=== PATIENT | female | born 1985 | race Caucasian/White ===

== ENCOUNTER 2016-10-11 16:49 | Emergency (ER) | payer MEDICAID ==
[2016-10-11] MEDS ORDERED: HYDROmorphone 1 MG/ML SYRINGE IM STA (18:00)
[2016-10-11] MEDS ORDERED: METHOCARBAMOL 500 MG TABLET PO STA (18:00)
[2016-10-11] MEDS ORDERED: KETOROLAC 60 MG/2 ML VIAL IM STA (18:01)
[2016-10-11] MEDS ORDERED: HYDROmorphone 1 MG/ML SYRINGE ONE (18:13)
[2016-10-11] MEDS ORDERED: KETOROLAC 60 MG/2 ML VIAL ONE (18:13)
[2016-10-11] MEDS ORDERED: METHOCARBAMOL 500 MG TABLET PO ONE (18:13)
== END 2016-10-11 18:45 | disposition home or self-care (01) ==
DX: M54.41 Lumbago with sciatica, right side (principal); W00.0XXA Fall on same level due to ice and snow, initial encounter; F17.200 Nicotine dependence, unspecified, uncomplicated
CPT/HCPCS: 96372; 99283; 99284; A9270; J1170

== ENCOUNTER 2016-11-04 15:16 | Emergency (ER) | payer MEDICAID ==
[2016-11-04] MEDS ORDERED: oxyCOD/ACETAMIN 5 MG/325 MG TABLET PO STA (15:42)
[2016-11-04] MEDS ORDERED: oxyCOD/ACETAMIN 5 MG/325 MG TABLET PO ONE ×2 (15:43→15:45)
== END 2016-11-04 16:22 | disposition home or self-care (01) ==
DX: M54.41 Lumbago with sciatica, right side (principal); F17.200 Nicotine dependence, unspecified, uncomplicated
CPT/HCPCS: 99283; A9270

== ENCOUNTER 2017-03-14 17:12 | Emergency (ER) | payer MEDICAID ==
[2017-03-14] MEDS ORDERED: ONDANSETRON 4 MG/2 ML VIAL IVP STA (18:50)
[2017-03-14] MEDS ORDERED: HYDROmorphone 1 MG/ML SYRINGE IVP STA ×3 (18:50→21:33)
[2017-03-14] MEDS ORDERED: SODIUM CHLORIDE 0.9% 1,000 ML IV ONE (18:50)
[2017-03-14] MEDS ORDERED: HYDROmorphone 1 MG/ML SYRINGE ONE ×3 (18:55→21:38)
[2017-03-14] MEDS ORDERED: ONDANSETRON 4 MG/2 ML VIAL ONE (18:55)
[2017-03-14 18:59] LABS: BASOPHILS # (AUTO) 0.1 10^3/uL (0.0-0.1); EOSINOPHILS # (AUTO) 0.2 10^3/uL (0.0-0.7); EOSINOPHILS % (AUTO) 2.7 %; HCT - HEMATOCRIT 38.2 % (37.0-47.0); HGB - HEMOGLOBIN 13.1 g/dL (12.0-16.0); LYMPHOCYTES # (AUTO) 3.3 10^3/uL (1.5-3.5); LYMPHOCYTES % (AUTO) 36.4 %; MEAN CORPUSCULAR HGB CONC 34.2 g/dL (32.0-36.0); MEAN CORPUSCULAR VOLUME 93.6 fL (81.0-99.0); MONOCYTES # (AUTO) 0.5 10^3/uL (0.0-1.0); MONOCYTES % (AUTO) 5.2 %; NEUTROPHILS # (AUTO) 4.9 10^3/uL (1.5-6.6); NEUTROPHILS % (AUTO) 54.7 %; RED BLOOD COUNT 4.08 10^6/uL (4.20-5.40); RED CELL DISTRIBUTION WIDTH 13.1 % (12.0-15.0)
[2017-03-14 19:08] LABS: ALBUMIN/GLOBULIN RATIO 1.3 (1.0-2.2); BILIRUBIN,TOTAL 0.3 mg/dL (0.2-1.0); CALCIUM 9.1 mg/dL (8.5-10.3); CREATININE 0.6 mg/dL (0.4-1.0); POTASSIUM 3.7 mmol/L (3.5-5.0); TOTAL PROTEIN 7.3 g/dL (6.7-8.2)
--- NOTE | 2017-03-14 20:43 | ED Physician Documentation ---
PD HPI FEMALE - Stated complaint Stated Complaint: POSS MISCARRAIGE - Chief complaint Chief Complaint: General - History obtained from History obtained from: Patient - History of Present Illness Timing - onset: Yesterday Timing - duration: Days (09/18) Timing - details: Abrupt onset, Still present (had onset of vaginal bleeding and uterine cramping started yesterday morning, intermittent with passage of some clots vaginally and one point what looked like a small bit of tissue. She took pictures but did not save it. Having increased cramps and passed larger clots ("size of a baseball") today at work so here to ED. No fever, no vomiting but did have some nausea.), Waxing and waning Associated symptoms: Vaginal bleeding. 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 No: Prior ectopic, Ovarian cysts Similar symptoms before: Diagnosis (miscarriage twice remotely in the past) Recently seen: Not recently seen (had nto have BIAS CUTTER HELPER appt as yet.) Review of Systems Constitutional: denies: Fever, Chills GI: reports: Nausea. denies: Vomiting, Diarrhea : reports: LMP (January 15), Vaginal bleeding. denies: Dysuria, Frequency, Discharge Neurologic: reports: Generalized weakness. 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: Miscarriage(s) : Kidney stones HEENT: None Psych: None Musculoskeletal: None Derm: None - Past Surgical History Past Surgical History: No - Present Medications Home Medications: Ambulatory Orders Medication Instructions Recorded Confirmed Sertraline HCl [Zoloft] 200 mg PO DAILY 08/03/16 03/14/17 Ondansetron Odt [Zofran] 4 mg TL Q6H PRN #15 tablet 03/14/17 Oxycodone HCl/Acetaminophen 1 each PO Q6H PRN #20 tablet 03/14/17 [Percocet 5-325 mg Tablet] - Allergies Allergies/Adverse Reactions: Allergies Allergy/AdvReac Type Severity Reaction Status Date / Time No Known Drug Allergies Allergy Verified 11/04/16 15:24 - Social History Does the pt smoke?: No Smoking Status: Never smoker Does the pt drink ETOH?: No Does the pt have substance abuse?: No - Immunizations Immunizations are current?: Yes - POLST Patient has POLST: No PD ED PE NORMAL - Vitals Vital signs reviewed: (tachycardic but BP is okay.) - General General: Alert and oriented X 3, Well developed/nourished, Other (appears in pain with pelvic cramping) - Neck Neck: Supple, no meningeal sign, No adenopathy - Cardiac Cardiac: RRR, No murmur - Respiratory Respiratory: Clear bilaterally - Abdomen Abdomen: Normal bowel sounds, Soft, Non distended, No organomegaly, Other ( tender suprapubic/lower abd midline. ) - Female Female : Deferred, Other (she has not had much blood out here in ED even with U/S (small clots only). ) - Rectal Rectal: Deferred - Back Back: No CVA TTP - Derm Derm: Normal color, Warm and dry - Extremities Extremities: No tenderness to palpate, Normal ROM s pain - Neuro Neuro: Alert and oriented X 3, No motor deficit, Normal speech - Psych Psych: No: Normal mood (somewhat sad) Results - Vitals Vitals: Vital Signs - 24 hr 03/14/17 03/14/17 03/14/17 17:22 19:03 21:57 Temperature 36.1 C L Heart Rate 124 H 108 H 124 H Respiratory 16 20 19 Rate Blood Pressure 130/86 H 127/68 118/84 H O2 Saturation 100 100 98 Oxygen O2 Source Room air - Labs Labs: Laboratory Tests 03/14/17 03/14/17 03/14/17 17:12 18:35 18:35 WBC 9.0 RBC 4.08 L Hgb 13.1 Hct 38.2 MCV 93.6 MCH 32.0 H MCHC 34.2 RDW 13.1 Plt Count 306 MPV 8.0 Neut # 4.9 Lymph # 3.3 Dunn # 0.5 Eos # 0.2 Baso # 0.1 Absolute Nucleated RBC 0.00 Nucleated RBCs 0.0 Sodium Potassium Chloride Carbon Dioxide Anion Gap BUN Creatinine Estimated GFR (MDRD) Glucose Calcium Total Bilirubin AST ALT Alkaline Phosphatase Total Protein Albumin Globulin Albumin/Globulin Ratio Lipase HCG, Quant < 0.60 Blood Type O POSITIVE Antibody Screen NEGATIVE 03/14/17 18:35 WBC RBC Hgb Hct MCV MCH MCHC RDW Plt Count MPV Neut # Lymph # Dunn # Eos # Baso # Absolute Nucleated RBC Nucleated RBCs Sodium 138 Potassium 3.7 Chloride 104 Carbon Dioxide 27 Anion Gap 7.0 BUN 11 Creatinine 0.6 Estimated GFR (MDRD) 115 Glucose 103 H Calcium 9.1 Total Bilirubin 0.3 AST 21 ALT 23 Alkaline Phosphatase 59 Total Protein 7.3 Albumin 4.1 Globulin 3.2 Albumin/Globulin Ratio 1.3 Lipase 12 L HCG, Quant Blood Type Antibody Screen - Rads (name of study) OB U/S Radiology: Prelim report reviewed (no definitie IUP seen. Adnexae are normal. No free fluid. ) PD MEDICAL DECISION MAKING - ED course Complexity details: reviewed results (No definite IUP seen on U/S. ), re- evaluated patient (pain lessened and better with meds but did need repeat dosings at intervals. Remains slightly tachycardic, but bP good and not having significant bleeding. Presume pain response. ), considered differential (She is 8 weeks by dates with prior positive preg test, and now negative quant, which would be c/w IUFD and now incomplete miscarriage. Having clots and cramping. The degree of bleeding is not significant to need urgent D&C, but the clots/ cramps are significant needing pain meds IV. She would prefer trying to go home and see if can complete the miscarriage, and I talked with Dr. Garcia, component assembler supervisor, so he is aware of the case for follow up. A quant of zero would not be c/w nor concerning of ectopic and no adnexal abnormal on U/S. ), d/w patient, d/w independent beauty consultant (Dr. Garcia, component assembler supervisor OB) Departure - Departure Disposition: Home, Self Care Clinical Impression: Incomplete miscarriage with blood clot Condition: Stable Record reviewed to determine appropriate education?: Yes Instructions: ED Miscarriage Incom Follow-Up: Crow Garcia MD [Provider Admit Priv/Credential] - [facility] [Provider Group] Prescriptions: Oxycodone HCl/Acetaminophen [Percocet 5-325 mg Tablet] 1 each PO Q6H PRN #20 tablet PRN Reason: Pain Ondansetron Odt [Zofran] 4 mg TL Q6H PRN #15 tablet PRN Reason: Nausea / Vomiting Comments: Drink lots of fluids. Ibuprofen 2-3 times daily, and add Tylenol for mild pain/ percocet for worse pain. Ondansatron if needed for nausea. Call [facility] tomorrow morning to set up appt with any of the providers for the next 1- 2 days. Return to ER if bleeding becomes brisker, pain not controlled with meds , any fevers, other concerns. This is apparently an incomplete miscarriage and can see if the bleeding stops itself and then done, or if it needs assistance completing the miscarriage with D&C or such.
--- NOTE | 2017-03-14 21:17 | Ultrasound Preliminary Report ---
Exam: US OB First Trimester IMPRESSION: 1. No definite intrauterine gestation seen. Differential diagnosis includes a normal early or miscarriage. Ectopic is not excluded although none is seen on this exam. Correlation wit h serial quantitative hCG and follow-up ultrasound in 10-14 days recommended. [facility] SITE ID: [id number]
--- NOTE | 2017-03-14 21:20 | Ultrasound Report ---
REVISED: THIS REPORT WAS ORIGINALLY SIGNED ON 03/14/2017 @ 2120. ORDERS LINKED ON 04/09/2017. EXAM: PELVIC ULTRASOUND EXAM DATE: 03/14/2017 08:12 PM. CLINICAL HISTORY: , vaginal bleeding and cramping. COMPARISON: None. TECHNIQUE: Realtime transabdominal pelvic scan performed to identify the uterus and adnexa and as an overview of other pelvic structures, followed by transvaginal scan to provide greater detail of the uterus and adnexa, with static image documentation. FINDINGS: Uterus: 8.7 x 4.6 x 6.4 cm. Anteverted position. Masses: Posterior intramural fibroid measuring 10 mm. Endometrium: 3 mm. Thin endometrium with small amount of fluid near the fundus without well-defined yolk sac or embryo. Cervix: Unremarkable. Right Ovary: 3.0 x 4.8 x 2.4 cm, volume 17 cc. Unremarkable with a simple 1.9 cm cyst. Left Ovary: 2.3 x 1.6 x 1.5 cm, volume 3 cc. Unremarkable Free Fluid: None. Other: None. IMPRESSION: 1. No definite intrauterine gestation seen. Differential diagnosis includes a normal early or miscarriage. Ectopic is not excluded although none is seen on this exam. Correlation with serial quantitative hCG and follow-up ultrasound in 10-14 days recommended. [facility] Referring Provider Line: [phone] SITE ID: [id number]
[2017-03-14] MEDS ORDERED: oxyCODONE/ACET 5/325 Prepack 4 PO STA (21:54)
[2017-03-14] MEDS ORDERED: ONDANSETRON ODT 4 MG Prepack 2 TL PRN (21:54)
[2017-03-14] MEDS ORDERED: oxyCODONE/ACET 5/325 Prepack 4 PO ONE (21:55)
[2017-03-14] MEDS ORDERED: ONDANSETRON ODT 4 MG Prepack 2 TL ONE (21:56)
[2017-03-14 21:58] VITALS: BP 118/84
== END 2017-03-14 22:22 | disposition home or self-care (01) ==
LOC: ED 17:12
DX: O03.4 Incomplete spontaneous abortion without complication (principal); N96 Recurrent pregnancy loss
CPT/HCPCS: 36415; 76801; 76817; 80053; 83690; 84702; 85025; 86850; 86900; 86901; 96374; 96375; 96376; 99283; 99284; J1170

== ENCOUNTER 2017-03-20 11:15 | Emergency (ER) | payer MEDICAID ==
[2017-03-20] MEDS ORDERED: HYDROcod/ACETAM 5/325 MG TABLET PO STA (12:14)
[2017-03-20] MEDS ORDERED: IBUPROFEN 600 MG TABLET PO STA (12:14)
[2017-03-20] MEDS ORDERED: IBUPROFEN 600 MG TABLET PO ONE (12:17)
[2017-03-20] MEDS ORDERED: HYDROcod/ACETAM 5/325 MG TABLET ONE (12:17)
[2017-03-20] MEDS ORDERED: oxyCOD/ACETAMIN 5 MG/325 MG TABLET PO STA (14:10)
[2017-03-20] MEDS ORDERED: oxyCOD/ACETAMIN 5 MG/325 MG TABLET PO ONE (14:11)
[2017-03-20] MEDS ORDERED: metroNIDAZOLE 250 MG TABLET PO STA (15:26)
[2017-03-20] MEDS ORDERED: metroNIDAZOLE 250 MG TABLET PO ONE (15:30)
== END 2017-03-20 15:40 | disposition home or self-care (01) ==
DX: R10.2 Pelvic and perineal pain (principal); N76.0 Acute vaginitis; B96.89 Other specified bacterial agents as the cause of diseases classified elsewhere; N83.201 Unspecified ovarian cyst, right side; R00.0 Tachycardia, unspecified; Z87.442 Personal history of urinary calculi
CPT/HCPCS: 36415; 76830; 76856; 81001; 84703; 85025; 87077; 87086; 87181; 87210; 87491; 87591; 93976; 99283; 99284; A9270

== ENCOUNTER 2017-04-23 18:07 | Emergency (ER) | payer MEDICAID ==
[2017-04-23 19:58] LABS: BASOPHILS # (AUTO) 0.1 10^3/uL (0.0-0.1); BASOPHILS % (AUTO) 0.8 %; EOSINOPHILS # (AUTO) 0.2 10^3/uL (0.0-0.7); EOSINOPHILS % (AUTO) 1.9 %; HCT - HEMATOCRIT 38.1 % (37.0-47.0); HGB - HEMOGLOBIN 12.9 g/dL (12.0-16.0); LYMPHOCYTES # (AUTO) 3.2 10^3/uL (1.5-3.5); LYMPHOCYTES % (AUTO) 33.2 %; MEAN CORPUSCULAR HGB CONC 33.9 g/dL (32.0-36.0); MEAN CORPUSCULAR VOLUME 94.1 fL (81.0-99.0); MEAN PLATELET VOLUME 7.8 fL (7.9-10.8); MONOCYTES # (AUTO) 0.5 10^3/uL (0.0-1.0); NEUTROPHILS # (AUTO) 5.7 10^3/uL (1.5-6.6); NEUTROPHILS % (AUTO) 59.1 %; RED BLOOD COUNT 4.05 10^6/uL (4.20-5.40); RED CELL DISTRIBUTION WIDTH 12.4 % (12.0-15.0); UNCORRECTED WHITE BLOOD COUNT 9.6 x10^3/uL; WHITE BLOOD COUNT 9.6 x10^3/uL (4.8-10.8)
[2017-04-23 20:18] LABS: CREATININE 0.5 mg/dL (0.4-1.0); POTASSIUM 3.9 mmol/L (3.5-5.0)
[2017-04-23] MEDS ORDERED: oxyCOD/ACETAMIN 5 MG/325 MG TABLET PO STA (21:20)
--- NOTE | 2017-04-23 21:23 | ED Physician Documentation ---
History of Present Illness - Stated complaint Stated Complaint: FEMALE /6WK OB - Chief complaint Chief Complaint: General - History obtained from History obtained from: Patient - History of Present Illness Timing: Other (G8 now with 3 miscarriages in her past, has had light bleeding and heavy cramping for the last day. 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: Miscarriage(s) : Kidney stones HEENT: None Psych: None Musculoskeletal: None Derm: None - Past Surgical History Past Surgical History: No - Present Medications Home Medications: Ambulatory Orders Medication Instructions Recorded Confirmed Sertraline HCl [Zoloft] 200 mg PO DAILY 08/03/16 03/20/17 Oxycodone HCl/Acetaminophen 1 - 2 tab PO Q4H PRN #7 tablet 04/23/17 [Percocet 5-325 mg Tablet] - Allergies Allergies/Adverse Reactions: Allergies Allergy/AdvReac Type Severity Reaction Status Date / Time No Known Drug Allergies Allergy Verified 04/23/17 18:56 - Social History Does the pt smoke?: No Smoking Status: Never smoker Does the pt drink ETOH?: No Does the pt have substance abuse?: No - Immunizations Immunizations are current?: Yes - POLST Patient has POLST: No PD ED PE NORMAL - Vitals Vital signs reviewed: Yes - General General: Alert and oriented X 3, No acute distress - HEENT HEENT: PERRL, EOMI - Neck Neck: Supple, no meningeal sign, No bony TTP - Abdomen Abdomen: Normal bowel sounds, Soft, Non tender - Back Back: No CVA TTP, No spinal TTP - Extremities Extremities: No edema, No calf tenderness / cord - Neuro Neuro: Alert and oriented X 3, Normal speech - Psych Psych: Normal mood, Normal affect Results - Vitals Vitals: Vital Signs - 24 hr 04/23/17 04/23/17 18:42 23:03 Temperature 36.4 C L Heart Rate 100 95 Respiratory 18 16 Rate Blood Pressure 123/67 131/61 H O2 Saturation 100 98 Oxygen O2 Source Room air - Labs Labs: Laboratory Tests 04/23/17 04/23/17 04/23/17 19:52 19:52 19:52 WBC 9.6 RBC 4.05 L Hgb 12.9 Hct 38.1 MCV 94.1 MCH 32.0 H MCHC 33.9 RDW 12.4 Plt Count 275 MPV 7.8 L Neut # 5.7 Lymph # 3.2 [place] # 0.5 Eos # 0.2 Baso # 0.1 Absolute Nucleated RBC 0.00 Nucleated RBCs 0.0 Sodium 135 Potassium 3.9 Chloride 104 Carbon Dioxide 23 Anion Gap 8.0 BUN 11 Creatinine 0.5 Estimated GFR (MDRD) 142 Glucose 137 H Calcium 9.0 HCG, Quant 21701.00 - Rads (name of study) pELVIC SONO Radiology: EMP read contemporaneously (Single IUP, 6 weeks and 1 day with small andrzej-gestational fluid collection and a fibroid uterus) PD MEDICAL DECISION MAKING - ED course ED course: The patient and family were counseled as to the diagnosis and need for follow- up. I counseled the patient with regard to signs and symptoms that would necessitate an urgent reevaluation in the emergency department. They understand they are welcome to return at any time if worse or if not improving as expected. This document was made in part using voice recognition software. While efforts are made to proofread this documents, sound alike and grammatical errors may occur. Departure - Departure Disposition: 01 Home, Self Care Clinical Impression: Threatened in early Condition: Good Record reviewed to determine appropriate education?: Yes Instructions: ED Miscarriage Poss Follow-Up: [facility] [Provider Group] Prescriptions: Oxycodone HCl/Acetaminophen [Percocet 5-325 mg Tablet] 1 - 2 tab PO Q4H PRN #7 tablet PRN Reason: Pain Discharge Date/Time: 04/23/17 23:06
[2017-04-23] MEDS ORDERED: oxyCOD/ACETAMIN 5 MG/325 MG TABLET PO ONE (21:28)
[2017-04-23] MEDS ORDERED: oxyCODONE/ACET 5/325 Prepack 4 PO STA (22:51)
--- NOTE | 2017-04-23 22:57 | Ultrasound Preliminary Report ---
Exam: US OB First Trimester IMPRESSION: 1. Single viable intrauterine at EGA 6 weeks 1 day with GABE 12/16/2017 based on crown-rump length, which is concordant with clinical dates. 2. Assigned dating is GABE 12/14/2017 based on LMP. 3. Small andrzej-gestational fluid collection. 4. Fibroid uterus. [facility] SITE ID: [id number]
--- NOTE | 2017-04-23 22:57 | Ultrasound Preliminary Report ---
Exam: US OB TRANSVAGINAL IMPRESSION: 1. Single viable intrauterine at EGA 6 weeks 1 day with GABE 12/16/2017 based on crown-rump length, which is concordant with clinical dates. 2. Assigned dating is GABE 12/14/2017 based on LMP. 3. Small andrzej-gestational fluid collection. 4. Fibroid uterus. [facility] SITE ID: [id number]
--- NOTE | 2017-04-23 22:59 | Ultrasound Report ---
EXAM: FIRST TRIMESTER OBSTETRIC ULTRASOUND (Less than 11 weeks) EXAM DATE: 04/23/2017 10:27 PM. CLINICAL HISTORY: History of multiple miscarriages. LMP: 03/09/2017. COMPARISONS: Pelvis ultrasound dated 03/20/2017. TECHNIQUE: Transabdominal and transvaginal ultrasound examination with static image documentation. CLINICAL DATES: EGA 6 weeks 5 days with GABE 12/14/2017 based on LMP. ASSESSMENT: Gestational Sac: Single intrauterine. Mean gestational sac diameter: 18 mm = 6 weeks 5 days. Embryo: CRL (crown-rump length) 3.2 mm = 6 weeks 1 day. Cardiac activity: 115 beats per minute. Yolk sac: 4 mm. Amniotic fluid: Not accurately assessed at this gestational age. Early placenta: Not visible at this gestational age. Other: Andrzej-gestational fluid collection measuring about 15 mm.. MATERNAL STRUCTURES: Uterus: Anteverted. Subserosal leiomyoma posteriorly measuring 1.4 x 1.5 x 1.2 cm.. Cervix: Closed. Right Ovary: 4.4 x 2.0 x 2.5 cm, volume 11.5 cc. Unremarkable. Probable corpus luteum measuring 1.9 x 1.3 x 1.2 cm. Left Ovary: 2.7 x 1.6 x 1.5 cm, volume cc. Unremarkable. Free Fluid: None. Other: None. IMPRESSION: 1. Single viable intrauterine at EGA 6 weeks 1 day with GABE 12/16/2017 based on crown-rump length, which is concordant with clinical dates. 2. Assigned dating is GABE 12/14/2017 based on LMP. 3. Small andrzej-gestational fluid collection. 4. Fibroid uterus. [facility] Referring Provider Line: [phone] SITE ID: [id number]
[2017-04-23] MEDS ORDERED: oxyCODONE/ACET 5/325 Prepack 4 PO ONE (23:02)
[2017-04-23 23:05] VITALS: BP 131/61
== END 2017-04-23 23:06 | disposition home or self-care (01) ==
LOC: ED 18:07
DX: O20.0 Threatened abortion (principal); O26.21 Pregnancy care for patient with recurrent pregnancy loss, first trimester; Z3A.01 Less than 8 weeks gestation of pregnancy
CPT/HCPCS: 36415; 76801; 76817; 80048; 84702; 85025; 99283; 99284; A9270

== ENCOUNTER 2017-06-03 16:26 | Emergency (ER) | payer MEDICAID ==
--- NOTE | 2017-06-03 17:19 | ED Physician Documentation ---
PD HPI URI - Stated complaint Stated Complaint: WEAK/12WK PREG - Chief complaint Chief Complaint: General - History obtained from History obtained from: Patient - History of Present Illness Timing - onset: How many days ago (9) Timing duration: Days (9) Timing details: Gradual onset, Still present (URI symptoms then into cough and wheezing. Has not few days of thick green sputum.) Associated symptoms: Chills, Nasal congestion, Productive cough, Dyspnea. No: Sore throat, Bilateral edema Contributing factors: No: Sick contact, Travel, Immunocompromised Improves by: No: Medication Worsened by: Activity Review of Systems Constitutional: reports: Chills, Myalgias. denies: Fever Nose: reports: Congestion Throat: denies: Sore throat Cardiac: denies: Chest pain / pressure Respiratory: reports: Dyspnea, Cough, Wheezing GI: reports: Nausea. 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(s) : Kidney stones HEENT: None Psych: None Musculoskeletal: None Derm: None - Past Surgical History Past Surgical History: No - Present Medications Home Medications: Ambulatory Orders Medication Instructions Recorded Confirmed Sertraline HCl [Zoloft] 200 mg PO DAILY 08/03/16 06/03/17 Albuterol Sulf [Ventolin Hfa 1 - 2 puffs INH Q4HR PRN #1 inhaler 06/03/17 Inhaler] Benzonatate [Tessalon] 100 mg PO TID PRN #20 capsule 06/03/17 Cephalexin [Keflex] 500 mg PO TID #21 capsule 06/03/17 Dexamethasone [Decadron] 4 mg PO DAILY #5 tablet 06/03/17 Ondansetron Odt [Zofran] 4 mg TL Q6H PRN #15 tablet 06/03/17 - Allergies Allergies/Adverse Reactions: Allergies Allergy/AdvReac Type Severity Reaction Status Date / Time No Known Drug Allergies Allergy Verified 04/23/17 18:56 - Social History Does the pt smoke?: No Smoking Status: Former smoker Does the pt drink ETOH?: No Does the pt have substance abuse?: No - Immunizations Immunizations are current?: Yes - POLST Patient has POLST: No PD ED PE NORMAL - Vitals Vital signs reviewed: Yes - General General: Alert and oriented X 3, Well developed/nourished, Other (looks like she does not feel well, but unlabored breathing and interacts well. ) - HEENT HEENT: Ears normal, Pharynx benign - Neck Neck: Supple, no meningeal sign, No adenopathy - Cardiac Cardiac: RRR, No murmur - Respiratory Respiratory: Clear bilaterally, Other (harsh cough and does bring up thick green sputum) - Abdomen Abdomen: Soft, Non tender - Back Back: No CVA TTP - Derm Derm: Normal color, Warm and dry - Extremities Extremities: No deformity, No tenderness to palpate, No edema, No calf tenderness / cord - Neuro Neuro: Alert and oriented X 3, No motor deficit, Normal speech Results - Vitals Vitals: Oxygen O2 Source Room air PD MEDICAL DECISION MAKING - ED course Complexity details: considered differential (seems like URI but with very thick green sputum, would treat as possible bacterial. Decided not on CXR as lungs clear and sats good and would not change therapy. ), d/w patient Departure - Departure Disposition: 01 Home, Self Care Clinical Impression: Bronchitis Condition: Stable Record reviewed to determine appropriate education?: Yes Instructions: ED Upper Resp Infec Abx Tx Prescriptions: Albuterol Sulf [Ventolin Hfa Inhaler] 1 - 2 puffs INH Q4HR PRN #1 inhaler PRN Reason: Shortness Of Air/Wheezing Dexamethasone [Decadron] 4 mg PO DAILY #5 tablet Cephalexin [Keflex] 500 mg PO TID #21 capsule Benzonatate [Tessalon] 100 mg PO TID PRN #20 capsule PRN Reason: Cough Ondansetron Odt [Zofran] 4 mg TL Q6H PRN #15 tablet PRN Reason: Nausea / Vomiting Comments: Drink lots of fluids. Zofran if needed for nausea. Use albuterol inhaler 2 puffs 4 times a day for the next 7-10 days to help with wheezing and cough. Decadron daily for 5 more days to help with bronchial inflammation. He can use Tessalon if needed for cough as well. This seems likely bacterial now, use the cephalexin 3 times a day for the next week which is an antibiotic. Recheck if not improving over the next few days. Forms: Activity restrictions Discharge Date/Time: 06/03/17 19:20
[2017-06-03] MEDS ORDERED: ONDANSETRON ODT 4 MG TABLET TL STA (17:44)
[2017-06-03] MEDS ORDERED: BENZONATATE 100 MG CAPSULE PO STA (17:44)
[2017-06-03] MEDS ORDERED: CEPHALEXIN 250 MG CAPSULE PO STA (17:44)
[2017-06-03] MEDS ORDERED: ALBUTEROL NEB 2.5 MG/3 ML INH STA (17:44)
[2017-06-03] MEDS ORDERED: DEXAMETHASONE 10 MG/ML VIAL PO STA (17:44)
[2017-06-03] MEDS ORDERED: DEXAMETHASONE 10 MG/ML VIAL ONE (17:54)
[2017-06-03] MEDS ORDERED: BENZONATATE 100 MG CAPSULE PO ONE (17:55)
[2017-06-03] MEDS ORDERED: ONDANSETRON ODT 4 MG TABLET ONE (17:55)
[2017-06-03] MEDS ORDERED: CEPHALEXIN 250 MG CAPSULE PO ONE (17:55)
[2017-06-03] MEDS ORDERED: ALBUTEROL NEB 2.5 MG/3 ML INH ONE (18:13)
[2017-06-03 19:18] VITALS: BP 130/82
== END 2017-06-03 19:20 | disposition home or self-care (01) ==
LOC: ED 16:26
DX: O99.511 Diseases of the respiratory system complicating pregnancy, first trimester (principal); J40 Bronchitis, not specified as acute or chronic; Z3A.12 12 weeks gestation of pregnancy; Z87.891 Personal history of nicotine dependence
CPT/HCPCS: 94640; 99283; A9270; J7613; Q0162

== ENCOUNTER 2018-11-06 18:20 | Emergency (ER) | payer SELFPAY ==
[2018-11-06] MEDS ORDERED: IBUPROFEN 800 MG TABLET PO STA (19:41)
[2018-11-06] MEDS ORDERED: HYDROcod/ACETAM 5/325 MG TABLET PO STA (19:41)
--- NOTE | 2018-11-06 19:42 | ED Physician Documentation ---
History of Present Illness - Stated complaint Stated Complaint: BREAST PX - Chief complaint Chief Complaint: General - History obtained from History obtained from: Patient, Family - History of Present Illness Timing: Yesterday (This is a 32-year-old woman who is not sexually active. She is breast-feeding a 1-year-old. About 5 days ago the 1-year-old bit her on the right nipple. 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) : Kidney stones HEENT: None Psych: None Musculoskeletal: None Derm: None - Past Surgical History Past Surgical History: No - Present Medications Home Medications: Ambulatory Orders Medication Instructions Recorded Confirmed Sertraline HCl [Zoloft] 200 mg PO DAILY 08/03/16 06/03/17 Albuterol Sulf [Ventolin Hfa 1 - 2 puffs INH Q4HR PRN #1 inhaler 06/03/17 Inhaler] Benzonatate [Tessalon] 100 mg PO TID PRN #20 capsule 06/03/17 Cephalexin [Keflex] 500 mg PO TID #21 capsule 06/03/17 Dexamethasone [Decadron] 4 mg PO DAILY #5 tablet 06/03/17 Ondansetron Odt [Zofran] 4 mg TL Q6H PRN #15 tablet 06/03/17 Cephalexin [Keflex] 500 mg PO Q6H #28 capsule 11/06/18 Hydrocodone/Acetaminophen 1 - 2 each PO Q6H PRN #14 tablet 11/06/18 [Hydrocodon-Acetaminophen 5-325] - Allergies Allergies/Adverse Reactions: Allergies Allergy/AdvReac Type Severity Reaction Status Date / Time No Known Drug Allergies Allergy Verified 11/06/18 18:31 - Social History Does the pt smoke?: No Smoking Status: Former smoker Does the pt drink ETOH?: No Does the pt have substance abuse?: No - Immunizations Immunizations are current?: Yes - POLST Patient has POLST: No PD ED PE NORMAL - Vitals Vital signs reviewed: Yes - General General: Alert and oriented X 3, No acute distress - HEENT HEENT: PERRL, EOMI (Lazy eye on the left), Ears normal, Pharynx benign - Neck Neck: Supple, no meningeal sign, No bony TTP - Cardiac Cardiac: RRR, No murmur - Respiratory Respiratory: No respiratory distress, Clear bilaterally - Abdomen Abdomen: Non tender - Derm Derm: Other (Breast exam done with Milton LOPEZ present and chaperoning. She has mild tenderness of the right breast but nothing focal. There is a healing laceration to the right nipple.) - Neuro Neuro: Alert and oriented X 3, Normal speech Results - Vitals Vitals: Vital Signs - 24 hr 11/06/18 11/06/18 18:29 20:15 Temperature 35.7 C L 38.3 C H Heart Rate 105 H 93 Respiratory 14 18 Rate Blood Pressure 139/84 H 104/71 O2 Saturation 95 98 Oxygen O2 Source Room air - Labs Labs: Laboratory Tests 11/06/18 19:47 Influenza A (Rapid) Negative Influenza B (Rapid) Negative Departure - Departure Disposition: 01 Home, Self Care Clinical Impression: Mastitis Fever Qualifiers: Fever type: due to other condition Qualified Code(s): R50.81 - Fever presenting with conditions classified elsewhere Condition: Good Record reviewed to determine appropriate education?: Yes Instructions: ED Fever Unconf Cause, ED Breast Infec Prescriptions: Cephalexin [Keflex] 500 mg PO Q6H #28 capsule Hydrocodone/Acetaminophen [Hydrocodon-Acetaminophen 5-325] 1 - 2 each PO Q6H PRN #14 tablet PRN Reason: pain Comments: Your blood pressure was elevated today on check into the emergency department. This does not mean that you have hypertension, it is a common phenomenon to come to the emergency department and have elevated blood pressure. I recommend that you see your primary care physician within the week to have it rechecked when you are feeling better.
[2018-11-06 20:16] VITALS: BP 104/71
[2018-11-06] MEDS ORDERED: CEPHALEXIN 250 MG Prepack 8 PO ONE (20:21)
[2018-11-06] MEDS ORDERED: HYDROcod/ACET 5/325 Prepack 4 PO STA (20:25)
== END 2018-11-06 20:36 | disposition home or self-care (01) ==
LOC: ED 18:20
DX: N61.0 Mastitis without abscess (principal); R50.81 Fever presenting with conditions classified elsewhere; R03.0 Elevated blood-pressure reading, without diagnosis of hypertension; Z87.891 Personal history of nicotine dependence
CPT/HCPCS: 87275; 87276; 99283

== ENCOUNTER 2019-10-08 14:30 | Emergency (ER) | payer MEDICAID ==
[2019-10-08 15:05] LABS: RAPID STREP SCREEN POSITIVE (Negative)
[2019-10-08 16:12] VITALS: BP 127/70
[2019-10-08] MEDS ORDERED: KETOROLAC 60 MG/2 ML VIAL IM STA (16:13)
[2019-10-08] MEDS ORDERED: LIDOCAINE 1% 2 ML VIAL MC ONE (16:15)
[2019-10-08] MEDS ORDERED: cefTRIAXone 1 GM VIAL IM STA (16:15)
--- NOTE | 2019-10-08 16:16 | ED Physician Documentation ---
PD HPI HEENT - Stated complaint Stated Complaint: NECK SWELLING,FEVER, LACK OF APPETITE - Chief complaint Chief Complaint: Heent - History obtained from History obtained from: Patient - History of Present Illness Timing - onset: Yesterday Location: Throat Associated symptoms: Fever, Congestion Recently seen: Not recently seen - Additional information Additional information: This is a 33-year-old woman who presents with complaints that she has a sore throat and her neck hurts she cannot eat or drink anything she is a headache like her "brain is being squeezed". She is been dizzy. She had a fever of 102 degrees last night. She took Tylenol 4 hours ago and has been rotating Tylenol and ibuprofen. She denies any vomiting. She reports not being able to swallow her saliva. She is not . Her mom says that she is due to have surgery on her left nose because there is so much blockage and she is just been having so much pain in her nose and does not have any pain medications for it. 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: Miscarriage(s) : Kidney stones HEENT: None Psych: None Musculoskeletal: None Derm: None - Past Surgical History Past Surgical History: No - Present Medications Home Medications: Ambulatory Orders Medication Instructions Recorded Confirmed Sertraline HCl [Zoloft] 200 mg PO DAILY 08/03/16 06/03/17 Albuterol Sulf [Ventolin Hfa 1 - 2 puffs INH Q4HR PRN #1 inhaler 06/03/17 Inhaler] Benzonatate [Tessalon] 100 mg PO TID PRN #20 capsule 06/03/17 Cephalexin [Keflex] 500 mg PO TID #21 capsule 06/03/17 Ondansetron Odt [Zofran] 4 mg TL Q6H PRN #15 tablet 06/03/17 dexAMETHasone [Decadron] 4 mg PO DAILY #5 tablet 06/03/17 Cephalexin [Keflex] 500 mg PO Q6H #28 capsule 11/06/18 Hydrocodone/Acetaminophen 1 - 2 each PO Q6H PRN #14 tablet 11/06/18 [Hydrocodon-Acetaminophen 5-325] Amoxicillin 875 mg PO BID #14 tablet 10/08/19 Hydrocodone/Acetaminophen 1 - 2 each PO Q6H PRN #2 tablet 10/08/19 [Hydrocodon-Acetaminophen 5-325] - Allergies Allergies/Adverse Reactions: Allergies Allergy/AdvReac Type Severity Reaction Status Date / Time No Known Drug Allergies Allergy Verified 10/08/19 14:41 - Social History Does the pt smoke?: No Smoking Status: Former smoker Does the pt drink ETOH?: No Does the pt have substance abuse?: No - Immunizations Immunizations are current?: Yes - POLST Patient has POLST: No PD ED PE NORMAL - Vitals Vital signs reviewed: Yes - General General: Alert and oriented X 3, No acute distress, Well developed/nourished - HEENT HEENT: Atraumatic, Ears normal, Moist mucous membranes, Other (She has a disconjugate gaze. There is no tonsillar enlargement but there is erythema to the tonsillar pillars and there is white exudate on both tonsils. There is no pharyngeal edema. She is grimacing when she swallows and) - Neck Neck: Other (There is enlarged anterior and posterior cervical adenopathy worse on the left than the right.) - Cardiac Cardiac: RRR - Respiratory Respiratory: No respiratory distress, Clear bilaterally - Derm Derm: Normal color, Warm and dry, No rash Results - Vitals Vitals: Vital Signs - 24 hr 10/08/19 10/08/19 14:41 16:11 Temperature 37.3 C 37 C Heart Rate 86 127 H Respiratory 14 18 Rate Blood Pressure 126/70 127/70 O2 Saturation 98 100 Oxygen O2 Source Room air - Labs Labs: Laboratory Tests 10/08/19 14:46 Group A Strep Rapid POSITIVE H PD MEDICAL DECISION MAKING - ED course Complexity details: reviewed results, d/w patient, d/w family ED course: Strep test was positive. Patient was given a shot of Toradol. She requested to the nursing staff for a shot of antibiotics. She was given a gram of Rocephin IM. We will give her 2 hydrocodone tablet prescription that she can use tonight to help her get some sleep. She should drink and push fluids. Still plan to treat her with amoxicillin orally for 7 days. Departure - Departure Disposition: Home, Self Care Clinical Impression: Strep pharyngitis Condition: Good Instructions: ED Strep Pharyngitis Conf Follow-Up: Александр Maza MD [Primary Care Provider] - Prescriptions: Amoxicillin 875 mg PO BID #14 tablet Hydrocodone/Acetaminophen [Hydrocodon-Acetaminophen 5-325] 1 - 2 each PO Q6H PRN #2 tablet PRN Reason: pain Comments: Push lots of fluids. Continue taking Tylenol and ibuprofen. I would still take the amoxicillin twice a day for 7 days. You have a prescription for 2 hydrocodone tablets that you can use through the night tonight if you need help getting sleep. Do not take additional Tylenol with these. Follow-up with your primary care provider if you have no improvement of your symptoms in 48 hours or return if you have inability to swallow, any difficulty breathing or other problems arise.
== END 2019-10-08 16:43 | disposition home or self-care (01) ==
LOC: ED 14:30
DX: Z87.891 Personal history of nicotine dependence (principal); J02.0 Streptococcal pharyngitis
CPT/HCPCS: 87430; 96372; 99283; 99284

== ENCOUNTER 2019-10-09 18:48 | Emergency (ER) | payer MEDICAID ==
[2019-10-09 19:04] VITALS: BP 117/62
--- NOTE | 2019-10-09 19:43 | ED Physician Documentation ---
History of Present Illness - Stated complaint Stated Complaint: LT EYE IRRATATION - Chief complaint Chief Complaint: Heent - History obtained from History obtained from: Patient - History of Present Illness Timing: Today Pain level max: 2 Pain level now: 1 - Additonal information Additional information: Patient is currently being treated for strep pharyngitis. She notes that her left eye has turned red and started to drain. Concerned about pinkeye. 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: Miscarriage(s) : Kidney stones HEENT: None Psych: None Musculoskeletal: None Derm: None - Past Surgical History Past Surgical History: No - Present Medications Home Medications: Ambulatory Orders Medication Instructions Recorded Confirmed Sertraline HCl [Zoloft] 200 mg PO DAILY 08/03/16 06/03/17 Albuterol Sulf [Ventolin Hfa 1 - 2 puffs INH Q4HR PRN #1 inhaler 06/03/17 Inhaler] Benzonatate [Tessalon] 100 mg PO TID PRN #20 capsule 06/03/17 Cephalexin [Keflex] 500 mg PO TID #21 capsule 06/03/17 Ondansetron Odt [Zofran] 4 mg TL Q6H PRN #15 tablet 06/03/17 dexAMETHasone [Decadron] 4 mg PO DAILY #5 tablet 06/03/17 Cephalexin [Keflex] 500 mg PO Q6H #28 capsule 11/06/18 Hydrocodone/Acetaminophen 1 - 2 each PO Q6H PRN #14 tablet 11/06/18 [Hydrocodon-Acetaminophen 5-325] Amoxicillin 875 mg PO BID #14 tablet 10/08/19 Hydrocodone/Acetaminophen 1 - 2 each PO Q6H PRN #2 tablet 10/08/19 [Hydrocodon-Acetaminophen 5-325] Polymyxin B/Trimeth Ophth Drop 1 drops LEFTEYE Q3H 7 Days #1 10/09/19 [Polytrim Ophth Drops] bottle - Allergies Allergies/Adverse Reactions: Allergies Allergy/AdvReac Type Severity Reaction Status Date / Time No Known Drug Allergies Allergy Verified 10/09/19 19:04 - Social History Does the pt smoke?: No Smoking Status: Never smoker Does the pt drink ETOH?: No Does the pt have substance abuse?: No - Immunizations Immunizations are current?: Yes - POLST Patient has POLST: No PD ED PE NORMAL - Vitals Vital signs reviewed: Yes - General General: Alert and oriented X 3, No acute distress - HEENT HEENT: Moist mucous membranes, Other (Left eye conjunctival injection with yellow drainage. Mild swelling.) - Derm Derm: Warm and dry - Neuro Neuro: Alert and oriented X 3 Results - Vitals Vitals: Vital Signs - 24 hr 10/09/19 19:03 Temperature 37 C Heart Rate 81 Respiratory 15 Rate Blood Pressure 117/62 O2 Saturation 98 Oxygen O2 Source Room air PD MEDICAL DECISION MAKING - ED course Complexity details: considered differential, d/w patient ED course: Patient with what appears to be bacterial conjunctivitis of the left eye. Will place on ophthalmic antibiotics for home. Patient counseled regarding signs and symptoms for which I believe and urgent re-evaluation would be necessary. Patient with good understanding of and agreement to plan and is comfortable going home at this time This document was made in part using voice recognition software. While efforts are made to proofread this document, sound alike and grammatical errors may occur. Departure - Departure Disposition: 01 Home, Self Care Clinical Impression: Bacterial conjunctivitis of left eye Condition: Good Instructions: ED Conjunctivitis Bacterial Follow-Up: Galen Gil MD [Primary Care Provider] - Within 1 week Prescriptions: Polymyxin B/Trimeth Ophth Drop [Polytrim Ophth Drops] 1 drops LEFTEYE Q3H 7 Days #1 bottle Comments: Continue your antibiotics at home. Use the eyedrops as prescribed. Return if you worsen. Discharge Date/Time: 10/09/19 19:56
== END 2019-10-09 19:56 | disposition home or self-care (01) ==
LOC: ED 18:48
DX: H10.9 Unspecified conjunctivitis (principal)
CPT/HCPCS: 99282; 99283

== ENCOUNTER 2020-03-04 15:36 | Outpatient (CLI) | payer MEDICAID | END 2020-03-04 15:37 | disposition critical access hospital (66) | LOC: EMS 15:36 | PROVIDERS: ATTEND Surgery | DX: R56.9 Unspecified convulsions (principal) | CPT/HCPCS: A0425; A0427; A0999 ==

== ENCOUNTER 2020-03-04 15:55 | Emergency (ER) | payer MEDICAID ==
[2020-03-04] MEDS ORDERED: SODIUM CHLORIDE 0.9% 1,000 ML IV STA (15:59)
--- NOTE | 2020-03-04 16:02 | ED Physician Documentation ---
History of Present Illness - Stated complaint Stated Complaint: SZ - History obtained from History obtained from: Patient, EMS - History of Present Illness Timing: How many hours ago (2) Pain level max: 4 Pain level now: 3 - Additonal information Additional information: 34-year-old female presents to the emergency department stating that her bilateral upper extremities started to shake at approximately 2:00 today, she feels her whole body shaking. She has not lost consciousness. No postictal state. No confusion. She is on Zoloft. Nothing makes this better or worse. Given Versed by EMS. No recent trauma. Denies any possibility of . Occasional headaches. Review of Systems Ten Systems: 10 systems reviewed and negative Constitutional: denies: Fever, Chills Ears: denies: Ear pain Nose: denies: Rhinorrhea / runny nose, Congestion Cardiac: denies: Chest pain / pressure Respiratory: denies: Cough GI: denies: Abdominal Pain, Nausea, Vomiting, Diarrhea : denies: Dysuria, Now EGA Skin: denies: Rash Musculoskeletal: denies: Neck pain, Back pain Neurologic: reports: Head injury (R sided, gradual onset.). 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: Miscarriage(s) : Kidney stones HEENT: None Psych: None Musculoskeletal: None Derm: None - Past Surgical History Past Surgical History: No - Present Medications Home Medications: Ambulatory Orders Medication Instructions Recorded Confirmed Sertraline HCl [Zoloft] 200 mg PO DAILY 08/03/16 06/03/17 Albuterol Sulf [Ventolin Hfa 1 - 2 puffs INH Q4HR PRN #1 inhaler 06/03/17 Inhaler] Benzonatate [Tessalon] 100 mg PO TID PRN #20 capsule 06/03/17 Cephalexin [Keflex] 500 mg PO TID #21 capsule 06/03/17 Ondansetron Odt [Zofran] 4 mg TL Q6H PRN #15 tablet 06/03/17 dexAMETHasone [Decadron] 4 mg PO DAILY #5 tablet 06/03/17 Cephalexin [Keflex] 500 mg PO Q6H #28 capsule 11/06/18 Hydrocodone/Acetaminophen 1 - 2 each PO Q6H PRN #14 tablet 11/06/18 [Hydrocodon-Acetaminophen 5-325] Amoxicillin 875 mg PO BID #14 tablet 10/08/19 Hydrocodone/Acetaminophen 1 - 2 each PO Q6H PRN #2 tablet 10/08/19 [Hydrocodon-Acetaminophen 5-325] Polymyxin B/Trimeth Ophth Drop 1 drops LEFTEYE Q3H 7 Days #1 10/09/19 [Polytrim Ophth Drops] bottle - Allergies Allergies/Adverse Reactions: Allergies Allergy/AdvReac Type Severity Reaction Status Date / Time No Known Drug Allergies Allergy Verified 03/04/20 16:03 - Social History Does the pt smoke?: No Smoking Status: Never smoker Does the pt drink ETOH?: No Does the pt have substance abuse?: No - Immunizations Immunizations are current?: Yes - POLST Patient has POLST: No PD ED PE NORMAL - Vitals Vital signs reviewed: Yes - General General: Alert and oriented X 3, No acute distress, Well developed/nourished - HEENT HEENT: Atraumatic, PERRL, EOMI, Moist mucous membranes - Neck Neck: Supple, no meningeal sign - Cardiac Cardiac: RRR, Strong equal pulses - Respiratory Respiratory: No respiratory distress, Clear bilaterally - Abdomen Abdomen: Soft, Non tender, Non distended - Back Back: No CVA TTP, No spinal TTP - Derm Derm: Warm and dry - Extremities Extremities: No tenderness to palpate, Normal ROM s pain, Other (all 4 extremities are tremulous. NVI. FROM. Does not change with purposeful movement. 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 Normal bilateral lower extremity patellar and ankle jerk reflexes. Normal great toe extension bilaterally. no saddle anesthesia) Eye Opening: Spontaneous Motor: Obeys Commands Verbal: Oriented GCS Score: 15 - Psych Psych: Normal mood, Normal affect Results - Vitals Vitals: Vital Signs - 24 hr 03/04/20 03/04/20 03/04/20 15:58 16:03 17:53 Temperature 37.4 C Heart Rate 88 109 H 90 Respiratory 14 14 14 Rate Blood Pressure 128/79 112/72 112/74 O2 Saturation 95 95 97 03/04/20 19:12 Temperature 36.7 C Heart Rate 81 Respiratory 17 Rate Blood Pressure 102/55 L O2 Saturation 98 Oxygen O2 Source Room air - EKG (time done) 1600 Rate: Rate (enter#) (111) Rhythm: Sinus tachycardia [place]: Normal Intervals: Normal [place] QRS: Normal Ischemia: Non specific changes - Labs Labs: Laboratory Tests 03/04/20 03/04/20 03/04/20 16:12 16:12 18:10 WBC 4.3 L RBC 3.86 L Hgb 11.8 L Hct 35.7 L MCV 92.5 MCH 30.6 MCHC 33.1 RDW 12.6 Plt Count 202 MPV 9.7 Neut # (Auto) 2.7 Lymph # (Auto) 1.2 L [place] # (Auto) 0.3 Eos # (Auto) 0.1 Baso # (Auto) 0.0 Absolute Nucleated RBC 0.00 Nucleated RBC % 0.0 Sodium 140 Potassium 3.6 Chloride 104 Carbon Dioxide 28 Anion Gap 8.0 BUN 16 Creatinine 0.6 Estimated GFR (MDRD) 113 Glucose 137 H Calcium 8.5 Phosphorus 3.8 Magnesium 1.6 L Total Bilirubin 0.3 AST 17 ALT 15 Alkaline Phosphatase 62 Total Protein 6.7 Albumin 4.0 Globulin 2.7 Albumin/Globulin Ratio 1.5 Lipase 29 Urine Color YELLOW Urine Clarity CLEAR Urine pH 7.0 Ur Specific [place] 1.020 Urine Protein NEGATIVE Urine Glucose (UA) NEGATIVE Urine Ketones NEGATIVE Urine Occult Blood SMALL H Urine Nitrite NEGATIVE Urine Bilirubin NEGATIVE Urine Urobilinogen 0.2 (NORMAL) Ur Leukocyte Esterase TRACE H Urine RBC 0-5 Urine WBC 0-3 Ur Squamous Epith Cells MOD Squamous H Urine Bacteria None Seen Ur Microscopic Review INDICATED Urine Culture Comments NOT INDICATED Urine HCG, Qual NEGATIVE - Rads (name of study) Head CT Radiology: Prelim report reviewed, EMP read contemporaneously, See rad report (No acute intracranial abnormality) PD MEDICAL DECISION MAKING - ED course Complexity details: reviewed results, re-evaluated patient, considered differential, d/w patient ED course: Symptoms resolved with administration of magnesium. No other significant lab abnormalities. No acute findings on head CT. Unclear etiology of her symptoms, possibly related to hypomagnesemia. Patient is well-appearing, nontoxic. Afebrile. No neurological deficits on exam. Patient counseled regarding signs and symptoms for which I believe and urgent re-evaluation would be necessary. Patient with good understanding of and agreement to plan and is comfortable going home at this time This document was made in part using voice recognition software. While efforts are made to proofread this document, sound alike and grammatical errors may occur. Departure - Departure Disposition: 01 Home, Self Care Clinical Impression: Hypomagnesemia, Tremor Condition: Good Instructions: Hypomagnesemia Dc Follow-Up: Galen Gil MD [Primary Care Provider] - Within 1 week Comments: You should have your magnesium levels rechecked with your doctor within 1 week. Return if you worsen. The remainder of your laboratory testing does not show any acute abnormalities tonight. Your head CT is normal. Discharge Date/Time: 03/04/20 19:16
[2020-03-04 16:18] LABS: BASOPHILS % (AUTO) 0.2 %; EOSINOPHILS # (AUTO) 0.1 10^3/uL (0.0-0.7); EOSINOPHILS % (AUTO) 1.4 %; HGB - HEMOGLOBIN 11.8 g/dL (12.0-16.0); LYMPHOCYTES # (AUTO) 1.2 10^3/uL (1.5-3.5); LYMPHOCYTES % (AUTO) 28.1 %; MEAN CORPUSCULAR HEMOGLOBIN 30.6 pg (27.0-31.0); MEAN CORPUSCULAR HGB CONC 33.1 g/dL (32.0-36.0); MEAN CORPUSCULAR VOLUME 92.5 fL (81.0-99.0); MEAN PLATELET VOLUME 9.7 fL (7.9-10.8); MONOCYTES # (AUTO) 0.3 10^3/uL (0.0-1.0); MONOCYTES % (AUTO) 6.5 %; NEUTROPHILS # (AUTO) 2.7 10^3/uL (1.5-6.6); NEUTROPHILS % (AUTO) 63.6 %; PLT - PLATELET COUNT 202 10^3/uL (130-450); RED BLOOD COUNT 3.86 10^6/uL (4.20-5.40); RED CELL DISTRIBUTION WIDTH 12.6 % (12.0-15.0); WHITE BLOOD COUNT 4.3 x10^3/uL (4.8-10.8)
[2020-03-04 16:37] LABS: ALBUMIN/GLOBULIN RATIO 1.5 (1.0-2.2); BILIRUBIN,TOTAL 0.3 mg/dL (0.2-1.0); CALCIUM 8.5 mg/dL (8.5-10.3); CREATININE 0.6 mg/dL (0.4-1.0); MAGNESIUM 1.6 mg/dL (1.7-2.8); PHOSPHORUS 3.8 mg/dL (2.5-4.6); TOTAL PROTEIN 6.7 g/dL (6.7-8.2)
[2020-03-04] MEDS ORDERED: MAGNESIUM SULFATE 2 GRAM 2 GM/50 ML BAG IV ONE ×2 (16:37→18:01)
--- NOTE | 2020-03-04 16:45 | CT Report ---
PROCEDURE: HEAD WO INDICATIONS: R sided headache TECHNIQUE: Noncontrast 4.5 mm thick angled axial sections acquired from the foramen magnum to the vertex. For r adiation dose reduction, the following was used: automated exposure control, adjustment of mA and/or kV according to patient size. COMPARISON: None. FINDINGS: Image quality: Excellent. CSF spaces: Basal cisterns are patent. No extra-axial fluid collections. Ventricles are normal in size and shape. Brain: No midline shift. No intracranial masses or hemorrhage. Rogers-white matter interface is norm al. Skull and face: Calvarium and visualized facial bones are intact, without suspicious lesions. Sinuses: Visualized sinuses and mastoids are clear. IMPRESSION: CT head without acute intracranial abnormalities. No mass or mass effect. No acute calvarial fracture s. Reviewed by: Óscar Alberto MD on 03/04/2020 4:44 PM PDT Approved by: Óscar Alberto MD on 03/04/2020 4:44 PM PDT Station ID: [id number]
[2020-03-04 18:20] LABS: BILIRUBIN,URINE NEGATIVE (NEGATIVE); GLUCOSE, URINE (UA) NEGATIVE (NEGATIVE); KETONES,URINE (UA) NEGATIVE (NEGATIVE); LEUKOCYTE ESTERASE, URINE TRACE (NEGATIVE); NITRITE,URINE NEGATIVE (NEGATIVE); OCCULT BLOOD,URINE SMALL (NEGATIVE); PROTEIN,URINE NEGATIVE (NEGATIVE); UROBILINOGEN,URINE 0.2 (NORMAL) E.U./dL (NORMAL)
[2020-03-04 18:28] LABS: CLARITY,URINE CLEAR (CLEAR); HCG UR QUAL NEGATIVE
[2020-03-04 18:34] LABS: BACTERIA,URINE None Seen /HPF (None Seen); RBC,URINE 0-5 /HPF (0-5); SQUAMOUS EPITHELIAL CELL,UR MOD Squamous (<= Few)
[2020-03-04 19:13] VITALS: BP 102/55
== END 2020-03-04 19:16 | disposition home or self-care (01) ==
LOC: EDUNIT# → ED 15:55
DX: E83.42 Hypomagnesemia (principal); R25.1 Tremor, unspecified; R00.0 Tachycardia, unspecified
CPT/HCPCS: 36415; 70450; 80053; 81001; 81003; 81025; 83690; 83735; 84100; 85025; 87086; 93005; 96361; 96365; 96366; 96368; 99284

== ENCOUNTER 2020-08-17 15:20 | Outpatient (CLI) | payer MEDICAID | END 2020-08-17 15:21 | disposition home or self-care (01) | LOC: COV 15:20 | PROVIDERS: ATTEND Family Medicine | DX: R05 Cough (principal); M79.10 Myalgia, unspecified site; R53.83 Other fatigue; R09.81 Nasal congestion; R11.2 Nausea with vomiting, unspecified; Z20.828 Contact with and (suspected) exposure to other viral communicable diseases ==

== ENCOUNTER 2021-01-13 08:00 | Outpatient (CLI) | payer MEDICAID | END 2021-01-13 23:59 | disposition home or self-care (01) | LOC: LAB.N 08:00 | PROVIDERS: ATTEND Nurse Practitioner | DX: B34.9 Viral infection, unspecified (principal); Z20.822 Contact with and (suspected) exposure to COVID-19 | CPT/HCPCS: 87070 ==

== ENCOUNTER 2021-08-09 15:44 | Emergency (ER) | payer MEDICAID ==
[2021-08-09 16:30] LABS: BASOPHILS % (AUTO) 0.5 %; EOSINOPHILS # (AUTO) 0.1 10^3/uL (0.0-0.7); EOSINOPHILS % (AUTO) 1.7 %; HCT - HEMATOCRIT 37.8 % (37.0-47.0); HGB - HEMOGLOBIN 12.2 g/dL (12.0-16.0); LYMPHOCYTES # (AUTO) 1.3 10^3/uL (1.5-3.5); LYMPHOCYTES % (AUTO) 20.5 %; MEAN CORPUSCULAR HGB CONC 32.3 g/dL (32.0-36.0); MEAN CORPUSCULAR VOLUME 92.9 fL (81.0-99.0); MEAN PLATELET VOLUME 9.5 fL (7.9-10.8); MONOCYTES # (AUTO) 0.4 10^3/uL (0.0-1.0); MONOCYTES % (AUTO) 6.2 %; NEUTROPHILS # (AUTO) 4.6 10^3/uL (1.5-6.6); NEUTROPHILS % (AUTO) 70.9 %; PLT - PLATELET COUNT 236 10^3/uL (130-450); RED BLOOD COUNT 4.07 10^6/uL (4.20-5.40); RED CELL DISTRIBUTION WIDTH 12.2 % (12.0-15.0); WHITE BLOOD COUNT 6.4 x10^3/uL (4.8-10.8)
[2021-08-09 16:43] LABS: ALBUMIN 4.6 g/dL (3.2-5.5); ALBUMIN/GLOBULIN RATIO 1.6 (1.0-2.2); BILIRUBIN,TOTAL 0.4 mg/dL (0.2-1.0); CALCIUM 9.8 mg/dL (8.5-10.3); CREATININE 0.8 mg/dL (0.4-1.0); POTASSIUM 4.2 mmol/L (3.5-5.0); TOTAL PROTEIN 7.4 g/dL (6.7-8.2)
[2021-08-09] MEDS ORDERED: KETOROLAC 30 MG/ML VIAL IVP STA (17:03)
[2021-08-09] MEDS ORDERED: ONDANSETRON 4 MG/2 ML VIAL IVP STA (17:03)
[2021-08-09] MEDS ORDERED: HYDROmorphone 1 MG/ML CARPUJECT IVP STA (17:03)
[2021-08-09 17:05] LABS: BILIRUBIN,URINE NEGATIVE (NEGATIVE); GLUCOSE, URINE (UA) NEGATIVE (NEGATIVE); KETONES,URINE (UA) NEGATIVE (NEGATIVE); LEUKOCYTE ESTERASE, URINE NEGATIVE (NEGATIVE); NITRITE,URINE NEGATIVE (NEGATIVE); OCCULT BLOOD,URINE LARGE (NEGATIVE); PH,URINE 5.5 PH (5.0-7.5); PROTEIN,URINE NEGATIVE (NEGATIVE); UROBILINOGEN,URINE 0.2 (NORMAL) E.U./dL (NORMAL)
--- NOTE | 2021-08-09 17:05 | ED Physician Documentation ---
PD HPI ABD PAIN - Stated complaint Stated Complaint: RT SIDE/BACK PX/NAUSEA - Chief complaint Chief Complaint: Abd Pain - History obtained from History obtained from: Patient - Additional information Additional information: 35-year-old woman had some urinary burning a few weeks ago but today developed sudden severe right flank pain radiating to the right lower quadrant. It is equivalent to early labor to her. She does not think is any possibility of . Urine has been dark and smelly but no current dysuria. No fevers. No history of renal colic. 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: Miscarriage(s) : Kidney stones HEENT: None Psych: None Musculoskeletal: None Derm: None - Past Surgical History Past Surgical History: No - Present Medications Home Medications: Ambulatory Orders Medication Instructions Recorded Confirmed Sertraline HCl [Zoloft] 200 mg PO DAILY 08/03/16 06/03/17 Albuterol Sulf [Ventolin Hfa 1 - 2 puffs INH Q4HR PRN #1 inhaler 06/03/17 Inhaler] Benzonatate [Tessalon] 100 mg PO TID PRN #20 capsule 06/03/17 Ondansetron Odt [Zofran] 4 mg TL Q6H PRN #15 tablet 06/03/17 cephALEXin [Keflex] 500 mg PO TID #21 capsule 06/03/17 dexAMETHasone [Decadron] 4 mg PO DAILY #5 tablet 06/03/17 Hydrocodone/Acetaminophen 1 - 2 each PO Q6H PRN #14 tablet 11/06/18 [Hydrocodon-Acetaminophen 5-325] cephALEXin [Keflex] 500 mg PO Q6H #28 capsule 11/06/18 Amoxicillin 875 mg PO BID #14 tablet 10/08/19 Hydrocodone/Acetaminophen 1 - 2 each PO Q6H PRN #2 tablet 10/08/19 [Hydrocodon-Acetaminophen 5-325] Polymyxin B/Trimeth Ophth Drop 1 drops LEFTEYE Q3H 7 Days #1 10/09/19 [Polytrim Ophth Drops] bottle Ondansetron Odt [Zofran] 4 mg TL Q6H PRN #10 tablet 08/09/21 Oxycodone HCl/Acetaminophen 1 - 2 each PO Q6H PRN #14 tablet 08/09/21 [Percocet 5-325 mg Tablet] - Allergies Allergies/Adverse Reactions: Allergies Allergy/AdvReac Type Severity Reaction Status Date / Time No Known Drug Allergies Allergy Verified 08/09/21 16:05 - Social History Does the pt smoke?: No Smoking Status: Never smoker Does the pt drink ETOH?: No Does the pt have substance abuse?: No - Immunizations Immunizations are current?: Yes - POLST Patient has POLST: No PD ED PE NORMAL - Vitals Vital signs reviewed: Yes - General General: Alert and oriented X 3, No acute distress - HEENT HEENT: PERRL, Dentition benign - Neck Neck: Supple, no meningeal sign - Cardiac Cardiac: RRR, No murmur - Respiratory Respiratory: No respiratory distress, Clear bilaterally - Abdomen Abdomen: Normal bowel sounds, Soft, Non tender - Back Back: No CVA TTP (mild r cvat) - Derm Derm: Normal color, Warm and dry - Extremities Extremities: No edema, No calf tenderness / cord - Neuro Neuro: Alert and oriented X 3, Normal speech Results - Vitals Vitals: Vital Signs - 24 hr 08/09/21 08/09/21 08/09/21 16:05 17:32 17:49 Temperature 36.8 C Heart Rate 75 74 76 Respiratory 18 18 16 Rate Blood Pressure 144/80 H 136/86 H 121/75 O2 Saturation 99 99 98 Oxygen O2 Source Room air - Labs Labs: Laboratory Tests 08/09/21 08/09/21 08/09/21 16:22 16:22 16:48 WBC 6.4 RBC 4.07 L Hgb 12.2 Hct 37.8 MCV 92.9 MCH 30.0 MCHC 32.3 RDW 12.2 Plt Count 236 MPV 9.5 Neut # (Auto) 4.6 Lymph # (Auto) 1.3 L [place] # (Auto) 0.4 Eos # (Auto) 0.1 Baso # (Auto) 0.0 Absolute Nucleated RBC 0.00 Nucleated RBC % 0.0 Sodium 139 Potassium 4.2 Chloride 101 Carbon Dioxide 28 Anion Gap 10.0 BUN 19 Creatinine 0.8 Estimated GFR (MDRD) 81 L Glucose 125 H Calcium 9.8 Total Bilirubin 0.4 AST 19 ALT 17 Alkaline Phosphatase 56 Total Protein 7.4 Albumin 4.6 Globulin 2.8 Albumin/Globulin Ratio 1.6 Lipase 27 Urine Color YELLOW Urine Clarity HAZY Urine pH 5.5 Ur Specific [place] >=1.030 H Urine Protein NEGATIVE Urine Glucose (UA) NEGATIVE Urine Ketones NEGATIVE Urine Occult Blood LARGE H Urine Nitrite NEGATIVE Urine Bilirubin NEGATIVE Urine Urobilinogen 0.2 (NORMAL) Ur Leukocyte Esterase NEGATIVE Urine RBC 6-10 H Urine WBC 0-3 Ur Squamous Epith Cells FEW Squamous Urine Bacteria Few Ur Microscopic Review INDICATED Urine Culture Comments NOT INDICATED Urine HCG, Qual NEGATIVE - Rads (name of study) 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 No evidence of infection. Comfortable after meds here. Departure - Departure Disposition: Home, Self Care Clinical Impression: Renal colic Condition: Good Record reviewed to determine appropriate education?: Yes Instructions: ED Stone Renal W Colic Prescriptions: Oxycodone HCl/Acetaminophen [Percocet 5-325 mg Tablet] 1 - 2 each PO Q6H PRN #14 tablet PRN Reason: pain Ondansetron Odt [Zofran] 4 mg TL Q6H PRN #10 tablet PRN Reason: Nausea / Vomiting Comments: Prescription sent electronically to [facility] in [place]. As discussed you have 3 mm right-sided kidney stone almost in the bladder. 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 Return for new or worsening symptoms. Strain your urine as discussed and if you retrieve any material you can presented to your physician for analysis. Call your doctor to arrange a follow-up appointment, make the next available appointment. In the interim, return anytime if worse or if new symptoms develop. I am prescribing a short course of narcotic pain medication for you. These are potentially dangerous and addictive medications that should be used carefully. These medications may constipate you. Take an [id number] stool softener (docusate) twice daily with plenty of water while taking these medications. If you go 24 hours without a bowel movement, take [id number] miralax, per package instructions. Do not drink or drive while taking these medications. If you received narcotic or sedating medications while in the emergency department, do not drive for 24 hours. Store this medication in a safe, secure place and out of reach of children. It is a violation of federal law to give or sell this medication to another person or to use in a manner other than prescribed. The ED will not refill narcotic prescriptions, including prescriptions lost or stolen. To dispose of unwanted medications: 1. [facility] at [address] in [place] has a medication drop box. They accept prescription medications (in pill form) Sunday through Sunday 9:00 a.m. to 5:00 p.m. 2. The [facility] accepts prescription medications (in pill form only) for disposal year round. Call for more information. 3. Contact the [facility] for the next [facility] sponsored prescription drug collection event. , [phone], or [phone]; Note that many narcotic pain relievers also contain Tylenol/acetaminophen. Please ensure that your total dose of acetaminophen from all sources does not exceed 3 g (3000 mg) per day.
[2021-08-09 17:08] LABS: CLARITY,URINE HAZY (CLEAR); HCG UR QUAL NEGATIVE
[2021-08-09 17:17] LABS: BACTERIA,URINE Few /HPF (None Seen); SQUAMOUS EPITHELIAL CELL,UR FEW Squamous (<= Few); WBC,URINE 0-3 /HPF (0-5)
[2021-08-09 17:49] VITALS: BP 121/75
--- NOTE | 2021-08-09 18:04 | CT Report ---
PROCEDURE: Abdomen/Pelvis WO INDICATIONS: R flank pain TECHNIQUE: Noncontrast 5 mm thick sections acquired from the diaphragms to the symphysis. 5 mm coronal and sagi ttal reformats were then performed. For radiation dose reduction, the following was used: automated exposure control, adjustment of mA and/or kV according to patient size. COMPARISON: None. FINDINGS: Image quality: Excellent. ABDOMEN: Lung bases: Lung bases are clear. Heart size is normal. Solid organs: Liver and spleen are normal in size. It is noted the superior hepatic dome is not ful ly included within the [id number] and cannot be evaluated. Gallbladder is unremarkable Pancreas i s normal in contours. No adrenal nodules. There is mild to moderate right hydronephrosis and hydrour eter. Calcification measuring approximately 3 mm is located at the right ureterovesicular junction. Peritoneum and bowel: Unenhanced bowel loops demonstrate normal wall thickness and caliber. No free fluid or air. Nodes and vessels: No retroperitoneal or mesenteric adenopathy by size criteria. Aorta and inferior vena cava are normal in caliber. Miscellaneous: No ventral hernias. PELVIS: Genitourinary: Bladder wall thickness is normal. Miscellaneous: No inguinal hernias or adenopathy. Bones: No suspicious bony lesions. No vertebral body compression fractures. Pars defect is noted a t L5 with grade 2 anterolisthesis of L5 on S1 measuring 1.2 cm. IMPRESSION: 3 mm right ureterovesicular calculus with mild to moderate right hydronephrosis and hydroureter. Reviewed by: Tmaara Riley MD on 08/09/2021 6:03 PM PST Approved by: Tamara Riley MD on 08/09/2021 6:03 PM PST Station ID: [id number]
== END 2021-08-09 18:29 | disposition home or self-care (01) ==
LOC: ED 15:44
DX: N13.2 Hydronephrosis with renal and ureteral calculous obstruction (principal)
CPT/HCPCS: 36415; 74176; 80053; 81001; 81025; 83690; 85025; 96374; 96375; 99283; 99284; J1170; 81003; 87086

== ENCOUNTER 2021-09-21 07:00 | Outpatient (CLI) | payer MEDICAID | END 2021-09-21 23:59 | disposition home or self-care (01) | LOC: COV 07:00 | PROVIDERS: ATTEND Family Medicine | DX: R53.83 Other fatigue (principal); Z20.822 Contact with and (suspected) exposure to COVID-19 ==

== ENCOUNTER 2022-09-14 08:00 | Outpatient (CLI) | payer MEDICAID | END 2022-09-14 23:59 | disposition home or self-care (01) | LOC: LAB.N 08:00 | PROVIDERS: ATTEND Physician Assistant Medical | DX: R30.0 Dysuria (principal) | CPT/HCPCS: 87086; 87181 ==

== ENCOUNTER 2023-11-21 09:30 | Outpatient (CLI) | payer MEDICAID | END 2023-11-21 09:45 | disposition home or self-care (01) | LOC: LAB.N 09:30 | PROVIDERS: ATTEND Family Medicine | DX: R30.0 Dysuria (principal) | CPT/HCPCS: 87086; 87181 ==

== ENCOUNTER 2023-12-20 17:03 | Emergency (ER) | payer MEDICAID ==
[2023-12-20 17:45] LABS: BASOPHILS % (AUTO) 0.2 %; EOSINOPHILS # (AUTO) 0.1 10^3/uL (0.0-0.7); EOSINOPHILS % (AUTO) 0.8 %; HCT - HEMATOCRIT 39.7 % (37.0-47.0); HGB - HEMOGLOBIN 12.8 g/dL (12.0-16.0); LYMPHOCYTES # (AUTO) 0.5 10^3/uL (1.5-3.5); MEAN CORPUSCULAR HEMOGLOBIN 30.3 pg (27.0-31.0); MEAN CORPUSCULAR HGB CONC 32.2 g/dL (32.0-36.0); MEAN CORPUSCULAR VOLUME 94.1 fL (81.0-99.0); MEAN PLATELET VOLUME 9.9 fL (7.9-10.8); MONOCYTES # (AUTO) 0.4 10^3/uL (0.0-1.0); MONOCYTES % (AUTO) 6.5 %; NEUTROPHILS # (AUTO) 5.2 10^3/uL (1.5-6.6); NEUTROPHILS % (AUTO) 84.3 %; PLT - PLATELET COUNT 223 10^3/uL (130-450); RED BLOOD COUNT 4.22 10^6/uL (4.20-5.40); WHITE BLOOD COUNT 6.1 x10^3/uL (4.8-10.8)
[2023-12-20 17:46] LABS: BILIRUBIN,URINE NEGATIVE (NEGATIVE); GLUCOSE, URINE (UA) NEGATIVE (NEGATIVE); KETONES,URINE (UA) NEGATIVE (NEGATIVE); LEUKOCYTE ESTERASE, URINE NEGATIVE (NEGATIVE); NITRITE,URINE NEGATIVE (NEGATIVE); OCCULT BLOOD,URINE NEGATIVE (NEGATIVE); PROTEIN,URINE NEGATIVE (NEGATIVE); UROBILINOGEN,URINE 0.2 (NORMAL) E.U./dL (NORMAL)
[2023-12-20 17:50] LABS: CLARITY,URINE CLEAR (CLEAR)
--- NOTE | 2023-12-20 18:01 | ED Physician Documentation ---
PD HPI ABD PAIN - Stated complaint Stated Complaint: LOWER BACK PX - Chief complaint Chief Complaint: Abd Pain - History obtained from History obtained from: Patient - History of Present Illness Timing - onset: Yesterday Timing - details: Abrupt onset, Still present (increased worse this afternoon.), Waxing and waning Quality: Cramping, Aching, Pain Location: RUQ Radiation: Right flank Improved by: No: Eating Worsened by: Moving, Palpation (RUQ). No: Eating, Breathing Associated symptoms: Nausea, Hematuria (yesterday). No: Fever, Vomiting, Diarrhea, Constipation, Dysuria Similar symptoms before: Diagnosis (She states it feels similar to kidney stone she has had in the past. No prior problems with gallbladder.) Recently seen: Not recently seen Review of Systems Constitutional: denies: Fever, Chills Nose: denies: Rhinorrhea / runny nose, Congestion Throat: denies: Sore throat Respiratory: denies: Cough GI: reports: Abdominal Pain, Nausea. denies: Vomiting, Constipation, Diarrhea : reports: Hematuria. denies: Dysuria, Discharge, Irregular menses PD PAST MEDICAL HISTORY - Past Medical History Cardiovascular: None Respiratory: None Neuro: None Endocrine/Autoimmune: None GI: None FISHING GUIDE: Miscarriage(s) : Kidney stones HEENT: None Psych: None Musculoskeletal: None Derm: None - Past Surgical History Past Surgical History: No - Present Medications Home Medications: Ambulatory Orders Medication Instructions Recorded Confirmed Sertraline HCl [Zoloft] 200 mg PO DAILY 08/03/16 12/20/23 Oxycodone HCl/Acetaminophen 1 each PO Q4H PRN #8 tablet 12/20/23 [Percocet 5-325 mg Tablet] Sennosides/Docusate Sodium 1 each PO QDAC PRN #30 tablet 12/20/23 [Senna-Docusate Sodium Tablet] polyethylene glycoL 3350 [Miralax] 17 gm PO DAILY #15 packet 12/20/23 - Allergies Allergies/Adverse Reactions: Allergies Allergy/AdvReac Type Severity Reaction Status Date / Time No Known Drug Allergies Allergy Verified 12/20/23 17:28 - Social History Does the pt smoke?: No Smoking Status: Never smoker Does the pt drink ETOH?: No Does the pt have substance abuse?: No - Immunizations Immunizations are current?: Yes - POLST Patient has POLST: No PD ED PE NORMAL - Vitals Vital signs reviewed: Yes - General General: Alert and oriented X 3, Well developed/nourished, Other (She appears in significant discomfort related to pain. She is moving around trying to find comfortable position.) - Neck Neck: Supple, no meningeal sign - Cardiac Cardiac: RRR, No murmur - Respiratory Respiratory: Clear bilaterally - Abdomen Abdomen: Normal bowel sounds, Soft, Non distended, No organomegaly, Other (Reasonable amount of tenderness with guarding in the right upper quadrant with some percussion tenderness as well. Moderate right flank pain as well. No rash or sores noted.) - Derm Derm: Normal color, Warm and dry - Neuro Neuro: Alert and oriented X 3, Normal speech Results - Vitals Vitals: Vital Signs - 24 hr 12/20/23 17:24 Temperature 36.5 C Heart Rate 100 Respiratory 16 Rate Blood Pressure 108/65 O2 Saturation 99 Oxygen O2 Source Room air - Labs Labs: Laboratory Tests 12/20/23 12/20/23 12/20/23 17:40 17:40 17:40 WBC 6.1 RBC 4.22 Hgb 12.8 Hct 39.7 MCV 94.1 MCH 30.3 MCHC 32.2 RDW 12.0 Plt Count 223 MPV 9.9 Neut # (Auto) 5.2 Lymph # (Auto) 0.5 L Lynn # (Auto) 0.4 Eos # (Auto) 0.1 Baso # (Auto) 0.0 Absolute Nucleated RBC 0.00 Nucleated RBC % 0.0 Sodium 135 Potassium 3.8 Chloride 102 Carbon Dioxide 26 Anion Gap 7.0 BUN 13 Creatinine 0.5 L Estimated GFR (MDRD) 137 Glucose 114 H Calcium 9.0 Total Bilirubin 0.5 AST 13 ALT 11 Alkaline Phosphatase 58 Total Protein 6.8 Albumin 4.1 Globulin 2.7 Albumin/Globulin Ratio 1.5 Lipase 43 Urine Color YELLOW Urine Clarity CLEAR Urine pH 6.0 Ur Specific [place] 1.020 Urine Protein NEGATIVE Urine Glucose (UA) NEGATIVE Urine Ketones NEGATIVE Urine Occult Blood NEGATIVE Urine Nitrite NEGATIVE Urine Bilirubin NEGATIVE Urine Urobilinogen 0.2 (NORMAL) Ur Leukocyte Esterase NEGATIVE Ur Microscopic Review NOT INDICATED Urine Culture Comments NOT INDICATED Urine HCG, Qual 12/20/23 17:40 WBC RBC Hgb Hct MCV MCH MCHC RDW Plt Count MPV Neut # (Auto) Lymph # (Auto) Lynn # (Auto) Eos # (Auto) Baso # (Auto) Absolute Nucleated RBC Nucleated RBC % Sodium Potassium Chloride Carbon Dioxide Anion Gap BUN Creatinine Estimated GFR (MDRD) Glucose Calcium Total Bilirubin AST ALT Alkaline Phosphatase Total Protein Albumin Globulin Albumin/Globulin Ratio Lipase Urine Color Urine Clarity Urine pH Ur Specific [place] Urine Protein Urine Glucose (UA) Urine Ketones Urine Occult Blood Urine Nitrite Urine Bilirubin Urine Urobilinogen Ur Leukocyte Esterase Ur Microscopic Review Urine Culture Comments Urine HCG, Qual NEGATIVE PD Medical Decision Making - ED course Complexity details: reviewed results (Initial urine is without any signs of infection. CBC is normal. Initial LFTs and lipase are also normal. Will get imaging to include CT scan with more consideration of renal cause.), considered differential (History of kidney stones in the past and did notice some hematuria yesterday. Pain undulated overnight and became more severe today. It is in th e flank but also right upper quadrant. Considerations for kidney stone or Johann versus biliary or gallbladder.), d/w patient Drug Therapy Requiring Monitoring for Toxicity: The patient is in significant discomfort. An IV is started by nursing and she is given a combination of Toradol, Dilaudid, IV fluids and ondansetron for her symptoms. Departure - Departure Disposition: Home, Self Care Clinical Impression: Abdominal pain, Gallstones Condition: Stable Record reviewed to determine appropriate education?: Yes Instructions: Gallstones Dc, ED Gallstone W Biliary Colic Follow-Up: Vernon Parekh MD [Provider Admit Priv/Credential] - Prescriptions: polyethylene glycoL 3350 [Miralax] 17 gm PO DAILY #15 packet Oxycodone HCl/Acetaminophen [Percocet 5-325 mg Tablet] 1 each PO Q4H PRN #8 tablet PRN Reason: Pain >8 Sennosides/Docusate Sodium [Senna-Docusate Sodium Tablet] 1 each PO QDAC PRN #30 tablet PRN Reason: Constipation Comments: You were seen in the emergency department for gallstones. [email or web address] Please follow-up with your primary care provider and return to the emergency department if you have any new or worsening symptoms or other concerns. Forms: PCP List
[2023-12-20 18:02] LABS: ALBUMIN 4.1 g/dL (3.2-5.5); ALBUMIN/GLOBULIN RATIO 1.5 (1.0-2.2); BILIRUBIN,TOTAL 0.5 mg/dL (0.2-1.0); CREATININE 0.5 mg/dL (0.6-1.3); POTASSIUM 3.8 mmol/L (3.5-4.5); TOTAL PROTEIN 6.8 g/dL (6.4-8.9)
[2023-12-20] MEDS: ONDANSETRON 4 MG/2 ML VIAL IVP STA (18:20)
[2023-12-20] MEDS: KETOROLAC 15 MG/ML VIAL IVP STA (18:20)
[2023-12-20] MEDS: SODIUM CHLORIDE 0.9% 1,000 ML IV STA (18:20)
[2023-12-20] MEDS: HYDROmorphone 1 MG/ML CARPUJECT IVP STA ×3 (18:21→21:25)
[2023-12-20] MEDS ORDERED: iohexoL-300 100 ML VIAL ONE (18:29)
[2023-12-20 18:31] LABS: HCG UR QUAL NEGATIVE
[2023-12-20] MEDS: iohexoL-300 100 ML VIAL IVP ONE (19:11)
--- NOTE | 2023-12-20 19:27 | CT Report ---
PROCEDURE: Abdomen/Pelvis W INDICATIONS: right upper abd/flank pain since yest CONTRAST: Omnipaque 300 100ml TECHNIQUE: After the administration of intravenous contrast, a CT scan of the abdomen and pelvis was performed. Images were recorded and evaluated at appropriate window settings. Reformats: coronal and sagittal. F or radiation dose reduction, the following was used: automated exposure control, adjustment of mA and /or kV according to patient size. COMPARISON: 04/03/2022 FINDINGS: Image quality: Diagnostic. Lower chest: Unremarkable. Liver: No solid mass. Gallbladder and biliary tree: Cholelithiasis without wall thickening. No biliary dilation. Spleen: No splenomegaly. Pancreas: No pancreatic ductal dilation. Adrenals: No adrenal nodule. Kidneys and ureters: No hydronephrosis. No renal cystic lesion which requires follow up. No solid mas s. Stomach, bowel and peritoneum: No bowel distension. No pathologic free fluid. Large burden of stool t hroughout the colon, correlate for constipation. Normal appendix. Lymph nodes: No central or retroperitoneal adenopathy. Vessels: No infrarenal aortic aneurysm. PELVIS Reproductive organs: Unremarkable. Bladder: No abnormal wall thickening, accounting for underdistention. Pelvic lymph nodes: No pelvic adenopathy by size criteria. Bones: No aggressive osseous abnormality. Stable grade 2 anterolisthesis of L5 on S1 with bilateral p ars intra-articular defects. Severe degenerative changes at this level. Other: Small fat-containing umbilical hernia. No inguinal hernias.. IMPRESSION: 1.No acute findings within the abdomen or pelvis to explain patient's symptoms. 2.Cholelithiasis without evidence of acute cholecystitis. 3.Large burden of stool throughout the colon, correlate for constipation. Reviewed by: Pardeep Ward MD on 12/20/2023 7:26 PM PDT Approved by: Pardeep Ward MD on 12/20/2023 7:26 PM PDT Station ID: [id number]
--- NOTE | 2023-12-20 21:31 | ED Physician Documentation ---
ED Addendum - Addendum Addendum: 12/20/23 21:37 Patient endorsed to me by Dr. Loomis awaiting CT report and reevaluation. Patient had improvement in pain with additional doses of IV Dilaudid. Pain medicine prescription sent to pharmacy. Return precautions given. She will follow-up outpatient with general surgery clinic for her gallstones. Impression 1 gallstones 2 abdominal pain Condition stable Disposition Home
[2023-12-20] MEDS: oxyCODONE/ACET 5/325 Prepack 4 PO STA (22:09)
[2023-12-20 22:41] VITALS: BP 107/29; O2SAT 100
== END 2023-12-20 22:41 | disposition home or self-care (01) ==
LOC: ED 17:03
DX: K80.20 Calculus of gallbladder without cholecystitis without obstruction (principal)
CPT/HCPCS: 36415; 74177; 80053; 81003; 81025; 83690; 85025; 99284; J1170; Q9967; 81001; 87086